=== PATIENT | male | born 1990 | race Caucasian/White ===

== ENCOUNTER 2017-01-17 00:02 | Emergency (ER) | payer OTHER ==
--- NOTE | 2017-01-17 00:19 | PDOC ---
Suture Removal/Wound Check HPI - History of Present Illness Chief Complaint: Revisit,Wound Recheck Stated Complaint: WOUND CHECK (SUTURES) Time Seen by Provider: 01/17/17 00:13 History Source: Yes: Patient Date of Last ED visit: 01/13/17 - Previous ED Treatment Type of procedure performed on last visit: Yes: Laceration Repair Tetanus Immunization: Yes: Up to Date (01/13/2017: [facility]) Past History - Past Medical History Allergies/Adverse Reactions: Allergies No Known Allergies Allergy (Verified 01/17/17 00:09) Home Medications: Ambulatory Orders NK [No Known Home Medication] 06/22/15 General: Yes: no pertinent history - Social History Smoking Status: Never smoked Suture Removal/Wound Check PE - Physical Exam Laceration/Wound Check Symptoms: reports: None. denies: Pain, Fever, Chills, Redness, Discharge, Bleeding, Numbness, Weakness, Improved, Persistent, Worsening, Resolved, Other Comment Current Severity Level: None Maximum Severity Level: None Comments: 01/17/17 00:21 right elbow laceration repair site healing, clean dry and intACT Medical Decision Making - Medical Decision Making 01/17/17 00:20 right forearm laceration repair wound check patient is here for a work note clearing for work. wound is healing cleaN DRY INTACT. advised to return in 3-4 days for suture removal *DC/Admit/Observation/Transfer Diagnosis at time of Disposition: Encounter for re-check of laceration wound - Discharge Dispostion Disposition: HOME - Patient Instructions Printed Discharge Instructions: How to Care for a Surgical Wound Additional Instructions: return to ER for suture removal in 3-4 days. you may return to work. cover wound when outside - Post Discharge Activity Work/School Note: Back to Work
[2017-01-17 00:20] VITALS: BP 133/67; PULSE 82; TEMP 97.1; BMI 26.6
== END 2017-01-17 00:33 | disposition home or self-care (01) ==
LOC: JER 00:02
DX: Z48.00 Encounter for change or removal of nonsurgical wound dressing (principal)
CPT/HCPCS: 99281-25